=== PATIENT | male | born 1990 | race Two or more races ===

== ENCOUNTER 2024-08-25 10:46 | Inpatient (IN) | payer BC ==
[~2024-08-25] VITALS: Ht 172.7 cm; Wt 74.8 kg
[2024-08-25] MEDS: ASPIRIN 81MG TABLET PO NR (11:31)
[2024-08-25] MEDS: NITROGLYCERIN 0.4MG TABLET SL SL NR (11:31)
[2024-08-25 12:14] LABS: CHLORIDE 108 mEq/L (98-107); POTASSIUM 3.9 mEq/L (3.5-5.1)
[2024-08-25 12:15] LABS: BASOPHILS % 0.7 % (0.0-2.0); CARBON DIOXIDE 23 mEq/L (21-32); EOSINOPHILS % 4.8 % (0.0-5.0); HEMATOCRIT. 43.6 % (42.0-52.0); HEMOGLOBIN. 15.1 g/dL (14.0-18.0); LYMPHOCYTES % 24.2 % (20.0-50.0); MEAN CORPUSCULAR HEMOGLOBIN 30.9 pg (28.0-32.0); MEAN CORPUSCULAR HGB CONC 34.7 g/dL (31.0-37.0); MONOCYTES % 6.2 % (2.0-8.0); NEUTROPHILS % 64.1 % (40.0-76.0); PLATELET 282 x1000/uL (130-400); RED CELL DISTRIBUTION WIDTH 12.8 % (11.6-14.6); SODIUM 139 mEq/L (136-145); WHITE BLOOD COUNT 8.7 x1000/uL (4.5-11.0)
[2024-08-25 12:16] LABS: CALCIUM 9.3 mg/dL (8.7-10.4)
[2024-08-25 12:21] LABS: CREATININE 0.9 mg/dL (0.6-1.3); GLUCOSE 106 mg/dL (70-105); UREA NITROGEN BLOOD 12 mg/dL (9-23)
[2024-08-25 12:22] LABS: ETHANOL BLOOD < 10 mg/dL (<10); TROPONIN I HIGH SENSITIVITY < 4 ng/L (3.0-53)
[2024-08-25] MEDS: FAMOTIDINE 20MG/2ML VIAL IV NR (13:37)
[2024-08-25 18:00] VITALS: BP 122/77; PULSE 58; RESP 18; TEMP 37.1; O2SAT 97
[2024-08-25 18:30] VITALS: BP 122/72; PULSE 58; RESP 18; TEMP 37.1
[2024-08-25 20:00] VITALS: BP 122/73; PULSE 65; RESP 18; TEMP 36.8; O2SAT 99
[2024-08-25] MEDS: ATORVASTATIN CALCIUM 40MG TABLET PO SCH (20:04)
[2024-08-25] MEDS ORDERED: IOHEXOL-350 100 ML BOTTLE ONE (23:51)
[2024-08-26 00:15] VITALS: BP 100/59; PULSE 68; RESP 16; TEMP 36.5; O2SAT 100
[2024-08-26] MEDS ORDERED: ZOLPIDEM TARTRATE 5MG TABLET PO PRN (00:15)
[2024-08-26] MEDS ORDERED: ONDANSETRON HCL 4MG/2ML INJ IV PRN (00:15)
[2024-08-26] MEDS ORDERED: DIPHENHYDRAMINE 50MG/ML VIAL IV PRN (00:15)
[2024-08-26] MEDS ORDERED: ACETAMINOPHEN 325MG TABLET PO PRN ×3 (00:15→15:00)
[2024-08-26 04:30] VITALS: BP 106/60; PULSE 56; RESP 18; TEMP 36.2; O2SAT 99
[2024-08-26] MEDS: PANTOPRAZOLE 40MG DR TABLET PO SCH (06:32)
[2024-08-26] MEDS: SODIUM CHLORIDE 0.9% 3ML FLUSH IVF SCH (06:32)
[2024-08-26 08:00] VITALS: BP 138/92; PULSE 75; RESP 18; TEMP 36.5; O2SAT 96
[2024-08-26] MEDS: ASPIRIN 81MG TABLET PO SCH (09:21)
[2024-08-26] MEDS: NITROGLYCERIN SPRAY/4.9GM CAN TL NR (10:55)
[2024-08-26] MEDS ORDERED: IOHEXOL-350 100 ML BOTTLE ONE (11:50)
[2024-08-26 13:08] LABS: TROPONIN I HIGH SENSITIVITY < 4 ng/L (3.0-53)
[2024-08-26] MEDS ORDERED: DIPHENHYDRAMINE 50MG/ML VIAL ONE (13:08)
[2024-08-26] MEDS ORDERED: VERAPAMIL HCL 2.5 MG/1 ML 2ML VIAL IV ONE (13:08)
[2024-08-26] MEDS ORDERED: LIDOCAINE HCL 1% 20ML VIAL ONE (13:09)
[2024-08-26] MEDS ORDERED: IODIXANOL 320MG/ML 100 ML BOTTLE IV ONE (13:09)
[2024-08-26] MEDS ORDERED: HEPARIN 1000 UNITS/ML 10ML ONE (13:09)
[2024-08-26] MEDS ORDERED: LIDOCAINE HCL 1% 10 MG/ML 10ML VIAL ONE (13:11)
[2024-08-26] MEDS ORDERED: FENTANYL CITRATE/PF 50MCG/ML 2ML VIAL ONE (13:33)
[2024-08-26] MEDS ORDERED: MIDAZOLAM HCL 2 MG/2 ML VIAL ONE ×2 (13:33→14:18)
[2024-08-26] MEDS ORDERED: ONDANSETRON HCL 4MG/2ML INJ ONE (13:38)
[2024-08-26 13:39] LABS: PROTHROMBIN TIME 10.8 sec (9.6-11.0)
[2024-08-26] MEDS ORDERED: ATROPINE SULFATE 1MG/10ML SYR IV PRN (15:00)
[2024-08-26 20:09] VITALS: BP 123/80; PULSE 75; RESP 18; TEMP 36.7; O2SAT 97
[2024-08-26 22:29] VITALS: BP 123/80; PULSE 60; TEMP 97.9; O2SAT 98
== END 2024-08-26 23:00 | disposition home or self-care (01) | DRG 287 ==
LOC: ER 10:46 → 8WST 13:22 → EDBEDREQ 13:34
PROVIDERS: ADMIT Internal Medicine; ATTEND Internal Medicine
PROC: 4A023N7 Measurement of Cardiac Sampling and Pressure, Left Heart, Percutaneous Approach (ICD-10-PCS; principal; 2024-08-26)
PROC: B211YZZ Fluoroscopy of Multiple Coronary Arteries using Other Contrast (ICD-10-PCS; 2024-08-26)
DX: I20.0 Unstable angina (principal); E78.00 Pure hypercholesterolemia, unspecified; F17.200 Nicotine dependence, unspecified, uncomplicated; Z83.3 Family history of diabetes mellitus; Z90.49 Acquired absence of other specified parts of digestive tract
CPT/HCPCS: 36415; 71045; 71275; 75571; 80048; 80320; 83605; 84484; 85025; 85379; 93005; 93306; 93458; 99291; A4606; C1769; C1887; C1893; J1200; J1644; J2003; J2250; J2405; J3010; J3490; Q9967; G0480